=== PATIENT | female | born 2000 | race Caucasian/White ===

== ENCOUNTER 2024-06-27 08:00 | Outpatient (AMB) | payer OTHER, SELFPAY ==
--- NOTE | 2024-06-27 08:02 | A.OFFPC_ITS ---
Vital Signs 06/27/24 08:03 Height 5 ft 2 in Weight 133 lb BMI 24.3 BP 104/64 Blood Pressure Location Rt brachial Position Sitting Pulse 83 Pulse Source Pulse Oximeter Pulse Oximetry (%) 98 Oxygen Delivery Method Room Air Intake Visit Reasons: [facility] Est Care Req PE Intake Note: Pt is here today for New patient visit PE. Allergies Cephalosporins [CEPHALOSPORINS] Allergy (Unknown, Unverified 06/27/24 08:05) DIARRHEA Medication List - Last Reconciled 06/27/24 by Brit Ugalde MD bupropion HCl XL 150 mg PO DAILY citalopram 40 mg PO DAILY Tobacco use date assessed: 06/27/24 Dental Screening Dental Screen Date: 06/27/24 Did you have a dental visit in the last 12 months?: Yes Did you have a dental problem in the last 6 months where you did not have access to dental care?: No Was dental information given to patient?: Patient has dentist HPI [facility] Est Care Req PE HPI Details Patient presents for new patient physical. Past history includes chronic anxiety and depression on medications for 10 years. Patient used to see a counselor but needs to get reestablished. She is concerned about chronic diarrhea alternating with constipation and decreased appetite for the last year. Patient reports feeling anxious and depressed but feels the medications are helpful. She denies suicidal ideation or plan. 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 1. Little interest or pleasure in doing things: not at all 2. Feeling down, depressed, or hopeless: more than half the days 3. Trouble falling or staying asleep, or sleeping too much: nearly every day 4. Feeling tired or having little energy: nearly every day 5. Poor appetite or overeating: nearly every day 6. Feeling bad about yourself - or that you are a failure or have let yourself or your family down: nearly every day 7. Trouble concentrating on things, such as reading the newspaper or watching television: more than half the days 8. Moving or speaking so slowly that other people could have noticed. Or the opposite - being so fidgety or restless that you have been moving around a lot more than usual: several days 9. Thoughts that you would be better off or of hurting yourself in some way: nearly every day Total score: 20 Depression Screening Interpretation: Positive (Referred to a counselor and [facility]) Depression Screening Follow-up: Existing condition and In treatment Depression Screening Done: Yes 52762 - PHQ-9 Billing: Yes Source: Developed by Drs. Milo Sheppard, Gissell Carter, Yfn To and colleagues, with an educational mohan from [employer]. Thrive Questionnaire Date Thrive assessed: 06/27/24 I am a: Patient What is your living situation today?: I have a steady place to live Within the past 12 months, did the food you bought not last and you didn't have the money to get more?: Never true Within the past 12 months, did you worry whether your food would run out before you got money to buy more?: Never true Do you have trouble paying for medicines?: No Do you have trouble getting transportation to medical appointments?: No Do you have trouble paying your heating and electricity bill?: Yes Do you have trouble taking care of your child, family member or friend?: No Do you have trouble with day-to-day activities such as bathing, preparing meals, shopping, managing finances, etc.?: Yes Are you currently unemployed and looking for a job?: No Are you interested in more education?: Yes Please select the resources that you would like help with: None Currently or been in a relationship where the following occur: No concerns reported THRIVE Score: 1 AUDIT C Alcohol Use Questionnaire (AUDIT-C) 1. How often do you have a drink containing alcohol?: 2-4 times a month 2. How many drinks containing alcohol do you have on a typical day when you are drinking?: 3 or 4 3. How often do you have six or more drinks on one occasion?: Less than monthly Total Score: 4 YELITZA-7 AMB Questionnaire YELITZA-7 Date YELITZA - 7 assessed: 06/27/24 Feeling nervous, anxious, or on edge: 2 = More than half the days Not being able to stop or control worryin = Several days Worrying too much about different things: 2 = More than half the days Trouble relaxin = More than half the days Being so restless that it is hard to sit still: 1 = Several days Becoming easily annoyed or irritable: 1 = Several days Feeling afraid as if something awful might happen: 2 = More than half the days Total YELITZA-7 score (0-4 normal; 5-9 mild; 10-14 moderate; 15-21 severe): 11 Source: Developed by Drs. Milo Sheppard, Gissell Carter, [employer] To and colleagues, with an educational mohan from [employer]. YELITZA-7 Assessment Billing YELITZA-7 Assessment Tool: YELITZA-7 Assessment 42997 Review of Systems Const All systems reviewed & are unremarkable except as noted in HPI and below Reports no additional complaints Eyes Reports no additional complaints ENT Reports no additional complaints Card Reports no additional complaints Resp Reports no additional complaints GI Reports no additional complaints Reports no additional complaints Physical exam (Primary Care) Vital Signs: Last Vital Signs Pulse 83 06/27/24 08:03 BP 104/64 06/27/24 08:03 Pulse Ox 98 06/27/24 08:03 Oxygen Delivery Method Room Air 06/27/24 08:03 BMI result Body Mass Index 24.3 Tobacco/Smoking Status: Tobacco use Status Tobacco use date assessed 06/27/24 06/27/24 08:12 Patient Tobacco Use Status Never used Tobacco 06/27/24 08:12 e-Cigarette/Vaping Use Never Used 06/27/24 08:12 PHQ-9: PHQ-9 Score PHQ-9: Total score 20 06/27/24 08:12 Depression Screening Interpretation: Positive (Referred to a counselor and Psychiatry) Depression Screening Follow-up: Existing condition and In treatment Thrive Assessment: Date of Thrive Assessment Date Thrive assessed 06/27/24 06/27/24 08:12 Currently or been in a relationship where the following occur: No concerns reported Const General: no acute distress HENMT Ears: hearing grossly normal bilaterally Face and sinus: Yes normal facial exam Mouth: Normal oral and palatal mucosa present Eyes General: appearance normal, both eyes and all related structures Neck Neck: Yes no lymphadenopathy and Yes supple Resp Effort & Inspection: normal respiratory effort Auscultation: clear to auscultation bilaterally Cardio Rhythm: regular rhythm Heart sounds: S1 normal heart sound present and S2 normal heart sound present GI Inspection: Yes normal to inspection Palpation (GI): Soft to palpation Percussion: Yes normal to percussion Auscultation: normal bowel sounds Coding Level of Care Code New Pt Prev Care 18-39yr([id number] Diagnoses Annual physical exam Z00.00 Anxiety and depression F41.9; F32.A Retained myringotomy tube in right ear Z96.22 IBS (irritable bowel syndrome) K58.9 Additional Codes YELITZA-7 Assessment Billing - YELITZA-7 Assessment Tool: YELITZA-7 Assessment 25244 ([id number]) Assessment & Plan Assessment & Plan (1) Annual physical exam: Code(s): Z00.00 - Encounter for general adult medical examination without abnormal findings Category: Medical Plan: Well-balanced diet regular exercise stress management discussed with the patient. She will have a fasting blood work today (2) Anxiety and depression: Code(s): F41.9 - Anxiety disorder, unspecified; F32.A - Depression, unspecified Category: Medical Plan: Continue current medications follow-up with counselor and a psychiatrist (3) Retained myringotomy tube in right ear: Comment: f/u ENT Code(s): Z96.22 - Myringotomy tube(s) status Category: Medical Plan: Follow-up with ENT (4) IBS (irritable bowel syndrome): Code(s): K58.9 - Irritable bowel syndrome, unspecified Category: Medical Plan: Patient was advised to increase fiber intake like Metamucil or Citrucel and start for diary to correlate with her symptoms. Follow-up in 1 month Orders: Orders Lipid Panel Today Z00.00 - Encounter for general adult medical examination without abnormal findings Comprehensive [place]. Panel Fast Today Z00.00 - Encounter for general adult medical examination without abnormal findings TSH reflex Free T4 Today Z00.00 - Encounter for general adult medical examination without abnormal findings Complete Blood Count Auto Diff Today Z00.00 - Encounter for general adult medical examination without abnormal findings UA w Microscopic Today Z00.00 - Encounter for general adult medical examination without abnormal findings Medications: New bupropion HCl XL 150 mg PO DAILY 90 tabs 0RF citalopram 40 mg PO DAILY 90 tabs 0RF
[2024-06-27 08:03] VITALS: BP 104/64; PULSE 83; O2SAT 98; BMI 24.3
== END 2024-06-27 09:06 | disposition home or self-care (01) ==
PROVIDERS: PCP Pediatrics; Visit Provider Internal Medicine
DX: Z00.00 Encounter for general adult medical examination without abnormal findings (principal); F41.9 Anxiety disorder, unspecified; F32.A Depression, unspecified; Z96.22 Myringotomy tube(s) status; K58.9 Irritable bowel syndrome, unspecified

== ENCOUNTER 2024-06-27 08:00 | Outpatient (REF) | payer OTHER, SELFPAY ==
[2024-06-27 10:04] LABS: MANUAL DIFF FLAG NO
[2024-06-27 10:08] LABS: Basophils Percent Auto 0.5 % (0-2); Eosinophils Absolute Auto 0.2 X10*3/uL (0.0-0.4); Hematocrit 42.6 % (37.0-47.0); Hemoglobin 14.4 g/dl (12.0-16.0); Imm Gran Abs Auto 0.01 X10*3/uL (0.00-0.03); Imm Gran Pct Auto 0.2 % (0.0-0.4); Lymphocytes Absolute Auto 2.6 X10*3/uL (1.2-4.9); Lymphocytes Percent Auto 43.6 % (20-40); Mean Corpuscular HGB Conc 33.8 g/dl (31.0-35.0); Mean Corpuscular Hemoglobin 28.5 pg (27.0-33.0); Mean Corpuscular Volume 84.2 fL (80.0-98.0); Mean Platelet Volume 11.5 fL (9.4-12.3); Monocytes Absolute Auto 0.5 X10*3/uL (0.1-1.2); Monocytes Percent Auto 8.1 % (2-11); Neutrophils Absolute Auto 2.6 x10*3/uL (2.0-8.3); Neutrophils Percent Auto 44.6 % (45-73); Platelet Count 253 X10*3/uL (160-400); Red Blood Count 5.06 X10*6/uL (4.20-5.50); Red Cell Distribution Width 12.7 % (11.0-16.0); White Blood Count 5.9 X10*3/uL (4.8-10.8)
[2024-06-27 10:24] LABS: Appearance Urine Clear; Color Urine Yellow; Glucose Urine UA Negative (Negative); Leukocyte Esterase Urine Small (1+) (Negative); Nitrite Urine Negative (Negative); PH 6.5 (5.0-9.0); Specific Gravity - Urine 1.025 (1.005-1.025); UMIC TRIGGER UA YES; Urine Blood Negative (Negative); Urine Ketones Negative (Negative); Urine Protein Negative (Neg-Trace)
[2024-06-27 11:06] LABS: Bacteria Urine 3+ (None Seen); Hyaline Casts Urine 0-2 /LPF (0-2); RBC Urine 0-2 /HPF (0-2); WBC Urine 0-5 /HPF (0-5)
[2024-06-27 12:17] LABS: Alanine Aminotransferase 22 U/L (0-31); Albumin Level 4.6 g/dL (3.5-5.0); Alkaline Phosphatase 64 U/L (39-117); Anion Gap 13 (12-20); Aspartate Amino Transferase 26 U/L (5-31); Bilirubin Total 0.6 mg/dL (0.0-1.0); Blood Urea Nitrogen 10 mg/dL (9-16); Calcium 9.5 mg/dL (8.4-10.2); Carbon Dioxide 24 mmol/L (22-29); Chloride 107 mmol/L (96-108); Cholesterol 144 mg/dL (<200); Estimated Glomerular Filt Rate > 60; Glucose Fasting 99 mg/dL (60-99); HDL Cholesterol 43 mg/dL (>40); LDL Cholesterol Calculated 87 mg/dL (<100); Potassium 4.2 mmol/L (3.3-5.1); Sodium 140 mmol/L (135-145); Total Protein 7.4 g/dL (6.5-8.0); Triglycerides 74 mg/dL (<150)
[2024-06-27 12:56] LABS: TSH reflex Free T4 0.83 uIU/mL (0.32-4.0)
== END 2024-06-27 08:01 | disposition home or self-care (01) ==
LOC: HO.HMGCLDS 08:00
PROVIDERS: PCP Pediatrics; Visit Provider Internal Medicine
DX: Z00.00 Encounter for general adult medical examination without abnormal findings (principal); F41.9 Anxiety disorder, unspecified; F32.A Depression, unspecified; Z79.899 Other long term (current) drug therapy
CPT/HCPCS: 36415; 80053; 80061; 81001; 84443; 85025; 96127

== ENCOUNTER 2024-11-20 11:57 | Outpatient (AMB) | payer OTHER, SELFPAY ==
--- NOTE | 2024-11-20 12:01 | AM.OFFWIN_ITS ---
Intake Vital Signs 11/20/24 12:14 Height 5 ft 2 in BP 120/70 Blood Pressure Location Lt brachial Position Sitting Pulse 73 Pulse Source Pulse Oximeter Temp 98.0 F Temp Source Oral Pulse Oximetry (%) 98 Oxygen Delivery Method Room Air Intake Visit Reasons: EP hit head with pet, dizzy, nauseous Patient Tobacco Use Status: Never used Tobacco Allergies Cephalosporins [CEPHALOSPORINS] Allergy (Unknown, Verified 11/20/24 12:14) DIARRHEA Do you need a note to return to daycare/school/sports/work: Yes HPI HPI Comments History of Present Illness Details This is a 23-year-old female with a past medical history of anxiety and depression who does not currently take any blood thinning medications, presenting for evaluation of a head injury that occurred at 7:30 a.m. this morning. Patient states she had bent forward this morning to feed her dog when her dog, which is a large lab mix, jumped up and hit her in the her forehead with his head. There was no loss of consciousness however thereafter the patient was able to drive to work in [place] and she started to feel nauseous and dizzy. Patient states that she took Tylenol for her headache and was able to drive to the clinic from [place] without concern. Patient denies having any syncope, vomiting, visual changes, neck pain in his ambulating without difficulty. 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[employer], exercise once a week Housing: House Patient Tobacco Use Status: Never used Tobacco e-Cigarette/Vaping Use: Never Used service: No Current occupational status: employed Cognitive needs: No Hearing needs: No Vision needs: No Review of Systems Const All systems reviewed & are unremarkable except as noted in HPI and below Reports no additional complaints, Denies chills, Denies fatigue, Denies fever(s), Reports headache(s) and Reports other (no loss of consciousness) Eyes Reports no additional complaints, Denies blurry vision, Denies change in vision, Denies diplopia, Denies loss of peripheral vision and Denies loss of vision ENT Reports no additional complaints, Reports Normal hearing present, Denies otalgia, Reports headache(s), Denies epistaxis and Denies sinus pressure Card Reports no additional complaints Resp Reports no additional complaints GI Reports no additional complaints Musc Reports no additional complaints Skin/Breast Reports system reviewed and no additional complaints, except as documented Neuro Reports no additional complaints, Reports Normal hearing present, Denies Abnormal speech present, Reports headache(s) and Denies loss of vision Psych Reports no additional complaints Endo Reports no additional complaints and Denies fatigue Ej/Lymph Reports no additional complaints Aller/Immun Reports no additional complaints Physical Exam Vital Signs: Last Vital Signs Temp 98.0 F 11/20/24 12:14 Pulse 73 11/20/24 12:14 BP 120/70 11/20/24 12:14 Pulse Ox 98 11/20/24 12:14 Oxygen Delivery Method Room Air 11/20/24 12:14 Const General: cooperative, healthy appearing, comfortable, no acute distress, well developed, alert, awake and Physically active Nutritional Appearance: average body habitus Orientation/consciousness: patient oriented x3 Limitations: no limitations HEENT Head: No normal to inspection (2cm x 0.5cm abrasion mid.forehead; no laceration, no bleeding, no ecchymosi), No palpable skull fracture, No raccoon eyes, No scalp lesion and No scalp tenderness Ears: hearing grossly normal bilaterally, external ears normal and TM's normal bilaterally General nose exam: Normal external nose present Face and sinus: Yes normal facial exam, No sinus tenderness and No Facial tenderness on exam of face and sinuses Teeth and gingiva: dentition normal Eyes General: appearance normal, both eyes and all related structures Visual [place]: normal visual [place] by confrontation Alignment and Position: alignment normal Periorbital: periorbital findings normal Eyelids: Yes eyelids normal Conjunctivae: conjunctivae normal Sclerae: sclerae normal Corneas: corneas normal Pupils: Equal, round and reactive pupils present EOM: EOMs intact bilaterally and No Nystagmus present Direct Ophthalmoscopy: normal light reflex and no photophobia Neck Neck: Yes full ROM Back/Spine/Pelvis Cervical Spine: normal cervical lordosis, cervical ROM normal, No cervical muscular tenderness, No pain with cervical ROM and No Cervical spine tenderness Neuro General: patient oriented x3 and CN's II-XI intact bilaterally Cranial nerves: Yes Equal, round and reactive pupils present, Yes Bilaterally intact EOM present, Yes Midline tongue present, Yes Normal hearing present and No Nystagmus present Cognition (Neuro): normal cognition Speech: No Abnormal speech present Gait exam (Neuro): Normal gait present Motor exam (neuro): 5/5 motor strength present throughout Psych Appearance: grossly normal Mental Status: mental status grossly normal Insight: Good insight present (Psych) Judgement: Good judgement present (Psych) Assessment & Plan Assessment & Plan (1) Head injury: Comment: Patient is neurologically intact and in no acute distress. She is ambulating independently without ataxia and cranial nerves are all intact bilaterally. Patient denies having any syncope, blurry vision, neck pain but continues to have a mild headache. Patient will be discharged home. Code(s): S09.90XA - Unspecified injury of head, initial encounter Qualifiers: Encounter type: initial encounter Qualified Code(s): S09.90XA - Unspecified injury of head, initial encounter Plan: Head injury precautions are reviewed with the patient. Her fiance is at home with her this afternoon. Patient is instructed to go to the emergency department for any changes in mentation or behavior. Coding Level of Care Code Est Pt Level 3 (21387) Diagnoses Injury of head, initial encounter S09.90XA Encounter type: initial encounter Time Spent (min) 20
[2024-11-20 12:14] VITALS: BP 120/70; PULSE 73; TEMP 36.7; O2SAT 98
== END 2024-11-20 12:48 | disposition home or self-care (01) ==
PROVIDERS: PCP Pediatrics; Visit Provider Physician Assistant
DX: S09.90XA Unspecified injury of head, initial encounter (principal)